=== PATIENT | female | born 1980 | race Two or more races ===

== ENCOUNTER 2016-09-08 11:29 | Emergency (ER) | payer SELFPAY ==
[2016-09-08 11:41] VITALS: BP 148/70
[2016-09-08] MEDS ORDERED: DIPHENHYDRAMINE HCL 25 MG/10 ML UDC PO ONE (12:01)
[2016-09-08] MEDS ORDERED: FAMOTIDINE 20 MG TABLET PO ONE (12:01)
--- NOTE | 2016-09-08 12:07 | ER Document Report ---
ED Skin Rash/Insect Bite/Abscs - General Chief Complaint: Insect Bite Stated Complaint: POSSIBLE ALLERGIC REACTION Time Seen by Provider: 09/08/16 11:43 Mode of Arrival: Ambulatory Information source: Patient Notes: 36-year-old female presents to ED for a wasp sting to her right ankle around 11 AM. She has a local reaction with erythema and edema. Systemic reactions noted. Lungs are clear respirations even and unlabored speaking in complete sentences. States she had a little bit of anxiety and numbness in her left arm earlier but that is all relieved. TRAVEL OUTSIDE OF THE [place] IN LAST 30 DAYS: No - HPI Patient complains to provider of: Insect sting Onset: This morning Onset/Duration: Gradual Quality of pain: Sharp Severity: Moderate Pain Level: 3 Skin Character: Other - Staying to the right ankle Quality of rash: Painful Identify cause: Yes Exacerbated by: Denies Relieved by: Other Similar symptoms previously: Yes Recently seen / treated by doctor: Yes - Related Data Allergies/Adverse Reactions: latex [Latex] Allergy (Mild, Verified 09/08/16 11:53) Hives aspirin [Aspirin] Allergy (Verified 09/08/16 11:53) cantelope Allergy (Unknown, Uncoded 09/08/16 11:53) Home Medications: Current Home Medications No Home Medications 09/08/16 [History] Past Medical History - General Information source: Patient - Social History Smoking Status: Never Smoker Cigarette use (# per day): No Chew tobacco use (# tins/day): No Smoking Education Provided: No Frequency of alcohol use: Social Drug Abuse: None 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 denies: Arthritis, CAD, COPD, CVA, Hypertension, Malignancy, Thyroid Disfunction Patient has suicidal ideation: No Patient has homicidal ideation: No - Past Medical History Cardiac Medical History: Reports: None Pulmonary Medical History: Reports: Hx Asthma EENT Medical History: Reports: None Neurological Medical History: Reports: None Endocrine Medical History: Reports: None Renal/ Medical History: Reports: Hx Ovarian Cysts Malignancy Medical History: Reports: None GI Medical History: Reports: None Musculoskeltal Medical History: Reports Hx Musculoskeletal Trauma Skin Medical History: Reports None Psychiatric Medical History: Reports: None Traumatic Medical History: Reports: None Infectious Medical History: Reports: None Past Surgical History: Reports: Hx Dilation and Curettage - After miscarriage, Hx Orthopedic Surgery - arthrascopic right knee - Immunizations Immunizations up to date: Yes Hx Diphtheria, Pertussis, Tetanus Vaccination: Yes - 04/28/2012 Hx Pneumococcal Vaccination: 04/28/12 Review of Systems - Review of Systems Constitutional: No symptoms reported EENT: No symptoms reported Cardiovascular: No symptoms reported Respiratory: No symptoms reported Gastrointestinal: No symptoms reported Genitourinary: No symptoms reported Female Genitourinary: No symptoms reported Musculoskeletal: No symptoms reported Skin: Other - Reaction to a bee sting mild erythema and swelling to the right ankle Hematologic/Lymphatic: No symptoms reported Neurological/Psychological: No symptoms reported Physical Exam - Vital signs Vitals: Temp Pulse Resp BP Pulse Ox 98.1 F 94 24 H 148/70 H 100 09/08/16 11:39 09/08/16 11:39 09/08/16 11:39 09/08/16 11:39 09/08/16 11:39 Interpretation: Normal - General General appearance: Appears well, Alert - HEENT Head: Normocephalic, Atraumatic Eyes: Normal Pupils: PERRL - Respiratory Respiratory status: No respiratory distress Chest status: Nontender Breath sounds: Normal Chest palpation: Normal - Cardiovascular Rhythm: Regular Heart sounds: Normal auscultation Murmur: No - Abdominal Inspection: Normal Distension: No distension Bowel sounds: Normal Tenderness: Nontender Organomegaly: No organomegaly - Back Back: Normal, Nontender - Extremities General upper extremity: Normal inspection, Nontender, Normal color, Normal ROM , Normal temperature General lower extremity: Normal inspection, Nontender, Normal color, Normal ROM , Normal temperature, Normal weight bearing. No: Michela's sign Ankle: Other - Erythema and swelling to the right ankle from a bee sting - Neurological Neuro grossly intact: Yes Cognition: Normal Orientation: AAOx4 Lola Coma Scale Eye Opening: Spontaneous [place] Coma Scale Verbal: Oriented [place] Coma Scale Motor: Obeys Commands Lola Coma Scale Total: 15 Speech: Normal Motor strength normal: LUE, RUE, LLE, RLE Sensory: Normal - Psychological Associated symptoms: Normal affect, Normal mood - Skin Skin Temperature: Warm Skin Moisture: Dry Skin Color: Normal Skin irregularity: Erythema Location of irregularity: Extremities - Ankle right Irregularity with: Swelling, Tenderness Course - Re-evaluation Re-evalutation: 09/08/16 12:09 Treated with Benadryl and Pepcid and ice. Patient instructed on use of Benadryl Pepcid and ice for the decrease in pain and swelling to the right ankle. - Vital Signs Vital signs: Temp Pulse Resp BP Pulse Ox 98.1 F 94 18 148/70 H 100 09/08/16 11:39 09/08/16 11:39 09/08/16 11:53 09/08/16 11:39 09/08/16 11:39 Discharge - Discharge Clinical Impression: Local reaction to a wasp sting Condition: Stable Disposition: HOME, SELF-CARE Instructions: Family Physicians / Practices Additional Instructions: Insect Sting You've been stung by an insect. The venom can cause pain, redness, and swelling. Right after the sting, we sometimes use adrenaline to reduce the reaction to the venom. This also stops any allergic reaction. You should apply cold compresses, rest and elevate the affected part, and take antihistamines. A more severe, itchy red swelling sometimes develops the next day. This is a local allergic reaction to the venom. This local allergy isn't dangerous. We treat it with cortisone-type medicine and antihistamines. Sometimes we use antibiotics if we're worried about infection. If you develop a fever, chills, a red streak, or swollen glands in the area of the bite, infection may be starting. Return at once. Insect stings from the bee and hornet family may cause a severe allergic reaction. Symptoms include hoarseness, shortness of breath, general redness of the skin, general itching, or lightheadedness. If any of these symptoms occur, you'll be treated with adrenalin and cortisone-like steroids. You should carry an "Anaphylaxis Kit" with you in the summer months so you can administer these medications to yourself before getting emergency medical care. ACID-SUPPRESSING MEDICATION: You have a prescription for medicine which reduces the stomach's secretion of acid. Examples include Zantac, Tagament, and Pepcid. These drugs are often used to allow healing of ulcers or esophagitis. They may be needed to prevent recurrence of ulcers in some patients, or to prevent damage from acid reflux in the esophagus. Take all medication as prescribed, even after the pain is gone. Regular antacids may be added as needed if you have symptoms while taking this medicine. These medications sometimes are prescribed for allergic reactions because they have anti-histaminic effects and relieve the rash and itching of the reaction. There are usually no side effects from this medication. But, in rare cases and particularly in the elderly, serious problems can occur. Contact your doctor if there is fever, rash, hallucinations, confusion, or unusual bruising. Contact your doctor at once if you develop lightheadedness, black or bloody stool, or bloody vomitus. USE OF DIPHENHYDRAMINE: The use of diphenhydramine (Benadryl) has been recommended to control allergic symptoms. The 25 mg strength is available over- the-counter, as well as the elixir. This antihistamine is used for many symptoms. It's useful for itching, watering eyes and nose, allergic swelling, hives, and insect stings. The medication can be repeated four times daily. Age Elixir (12.5 mg/tsp) 25 mg pill 2-3 yr 1/2 tsp 4-8 yr 1 tsp 9-14 yr 2 tsp one tab adult 1-2 tabs Antihistamines may cause drowsiness, especially with the first dose. Do not operate machinery or drive while under the effects of the medication. Do not combine the medication with alcohol, or with any other medication without talking to your doctor. Ice & Elevation Apply ice packs frequently against the painful area. Many different schedules are recommended, such as "20 minutes on, 20 minutes off" or "one hour ice, two hours rest." If you need to work, you may need to go longer between ice treatments. You should plan to have the area ice packed AT LEAST one- fourth of the time. The ice should be applied over the wrap, tape, or splint, or over a layer of cloth -- not directly against the skin. Some ice bags have a built-in cloth and can be put directly on the skin. Your injured part should be elevated as much as possible over the next 48 hours. Try to keep the injury above the level of the heart. Avoid use of the injured area. Elevation and rest will decrease the swelling. FOLLOW-UP CARE: If you have been referred to a physician for follow-up care, call the physician s office for an appointment as you were instructed or within the next two days. If you experience worsening or a significant change in your symptoms, notify the physician immediately or return to the Emergency Department at any time for re-evaluation. Forms: Elevated Blood Pressure, Return to Work
== END 2016-09-08 12:20 | disposition home or self-care (01) ==
LOC: ER 11:29
DX: T63.461A Toxic effect of venom of wasps, accidental (unintentional), initial encounter (principal); F41.9 Anxiety disorder, unspecified; R20.0 Anesthesia of skin
CPT/HCPCS: 99281; J3490

== ENCOUNTER 2017-01-13 20:36 | Emergency (ER) | payer SELFPAY ==
--- NOTE | 2017-01-13 21:35 | ER Document Report ---
ED General - General Chief Complaint: Skin Problem Stated Complaint: BODY PAIN Time Seen by Provider: 01/13/17 21:27 Notes: Patient is a 36-year-old female comes emergency department for chief complaint of abnormal and nontraumatic bruises showing up on her body including her legs, back, and buttocks. She has never had this before. She denies any other symptoms including pain, fever, or trauma. She states that she did have dental procedure performed 5 days ago and she is currently on hydrocodone and amoxicillin. She does not take any other daily medications. LMP within the past month. TRAVEL OUTSIDE OF THE [place] IN LAST 30 DAYS: No - Related Data Allergies/Adverse Reactions: latex [Latex] Allergy (Mild, Verified 09/08/16 11:53) Hives aspirin [Aspirin] Allergy (Verified 09/08/16 11:53) cantelope Allergy (Unknown, Uncoded 09/08/16 11:53) Past Medical History - General Information source: Patient - Social History Smoking Status: Never Smoker Frequency of alcohol use: None Drug Abuse: None Lives with: Family Family History: DM, Hyperlipidemia. denies: Arthritis, CAD, COPD, CVA, Hypertension, Malignancy, Thyroid Disfunction Pulmonary Medical History: Reports: Hx Asthma Renal/ Medical History: Reports: Hx Ovarian Cysts. Denies: Hx Peritoneal Dialysis Musculoskeltal Medical History: Reports Hx Musculoskeletal Trauma Past Surgical History: Reports: Hx Dilation and Curettage - After miscarriage, Hx Orthopedic Surgery - arthrascopic - Immunizations Immunizations up to date: Yes Hx Diphtheria, Pertussis, Tetanus Vaccination: Yes - 04/28/2012 Hx Pneumococcal Vaccination: 04/28/12 Review of Systems - Review of Systems Constitutional: No symptoms reported EENT: No symptoms reported Cardiovascular: No symptoms reported Respiratory: No symptoms reported Gastrointestinal: No symptoms reported Genitourinary: No symptoms reported Female Genitourinary: No symptoms reported Musculoskeletal: No symptoms reported Skin: See HPI Hematologic/Lymphatic: No symptoms reported Neurological/Psychological: No symptoms reported Physical Exam - Vital signs Vitals: Temp Pulse Resp BP Pulse Ox 98.5 F 98 16 141/95 H 98 01/13/17 20:51 01/13/17 20:51 01/13/17 20:51 01/13/17 20:51 01/13/17 20:51 Interpretation: Normal - General General appearance: Appears well, Alert - HEENT Head: Normocephalic, Atraumatic Eyes: Normal Pupils: PERRL - Respiratory Respiratory status: No respiratory distress Chest status: Nontender Breath sounds: Normal Chest palpation: Normal - Cardiovascular Rhythm: Regular Heart sounds: Normal auscultation Murmur: No - Abdominal Inspection: Normal Distension: No distension Bowel sounds: Normal Tenderness: Nontender Organomegaly: No organomegaly - Back Back: Normal, Nontender - Extremities General upper extremity: Normal inspection, Nontender, Normal color, Normal ROM , Normal temperature General lower extremity: Normal inspection, Nontender, Normal color, Normal ROM , Normal temperature, Normal weight bearing. No: Michela's sign - Neurological Neuro grossly intact: Yes Cognition: Normal Orientation: AAOx4 [place] Coma Scale Eye Opening: Spontaneous Lola Coma Scale Verbal: Oriented Lola Coma Scale Motor: Obeys Commands [place] Coma Scale Total: 15 Speech: Normal Motor strength normal: LUE, RUE, LLE, RLE Sensory: Normal - Psychological Associated symptoms: Normal affect, Normal mood - Skin Skin Temperature: Warm Skin Moisture: Dry Skin Color: Normal Skin irregularity: other - Small amount of ecchymosis noted over the lower back , side of the right leg. Increased amount of ecchymosis noted over the right medial thigh. No erythema, induration, tenderness, or other abnormality noted. Course - Re-evaluation Re-evalutation: Platelets unremarkable. Blood counts otherwise unremarkable. PT, PTT within normal limits. Patient has no active bleeding on examination. She does have some small scattered bruising. Exact source is unsure but workup and exam do not indicate ITP or other treatment requiring acute abnormality. Patient requesting primary care referral, she was provided with this for close follow-up , discussed return precautions, provided patient with copy of her paperwork, patient states satisfaction and agreement. - Vital Signs Vital signs: Temp Pulse Resp BP Pulse Ox 98.1 F 86 16 124/88 H 98 01/14/17 01:08 01/14/17 01:08 01/14/17 01:08 01/14/17 01:08 01/14/17 01:08 - Laboratory Result Diagrams: 01/13/17 21:58 Laboratory results interpreted by me: 01/13/17 21:58 Hct 35.6 L Seg Neutrophils % 38.8 L Lymphocytes % 48.2 H Discharge - Discharge Clinical Impression: Ecchymosis Condition: Stable Disposition: HOME, SELF-CARE Additional Instructions: Your laboratory workup does not indicate any concerning abnormality. Please follow-up with primary care provider for additional evaluation. See referral. Avoid blood thinning medications for now including aspirin, ibuprofen, etc. Take Tylenol if needed for pain. Return to emergency department for any concerning or worsening symptoms including bleeding symptoms (such as bleeding from the gums or other locations abnormally). Referrals: STACY GAUTAM MD [ACTIVE STAFF] - Follow up as needed CRISTIAN CHENG MD [ACTIVE STAFF] - Follow up as needed
[2017-01-13 22:27] LABS: ABSOLUTE EOSINOPHILS # (AUTO) 0.1 10^3/uL (0.0-0.6); ABSOLUTE LYMPHOCYTES (AUTO) 3.9 10^3/uL (0.5-4.7); ABSOLUTE MONOCYTES (AUTO) 0.9 10^3/uL (0.1-1.4); ABSOLUTE NEUT (AUTO) 3.1 10^3/uL (1.7-8.2); BASOPHILS % (AUTO) 0.4 % (0-2); EOSINOPHILS % (AUTO) 1.8 % (0-6); HEMATOCRIT 35.6 % (36.0-47.0); HEMOGLOBIN 12.5 g/dL (12.0-15.5); HGB HCT DIFFERENCE 1.9; LYMPHOCYTES % (AUTO) 48.2 % (13-45); MEAN CORPUSCULAR HEMOGLOBIN 31.6 pg (27.0-33.4); MEAN CORPUSCULAR HGB CONC 35.2 g/dL (32.0-36.0); MEAN CORPUSCULAR VOLUME 90 fl (80-97); MONOCYTES % (AUTO) 10.8 % (3-13); RED BLOOD COUNT 3.96 10^6/uL (3.72-5.28); RED CELL DISTRIBUTION WIDTH 11.9 % (11.5-14.0); SEGMENTED NEUTROPHILS % (AUTO) 38.8 % (42-78)
[2017-01-13 23:49] LABS: PROTHROMBIN TIME 12.4 SEC (11.4-15.4)
[2017-01-14 01:11] VITALS: BP 124/88
== END 2017-01-14 01:11 | disposition home or self-care (01) ==
LOC: ER 20:36
DX: S80.12XS Contusion of left lower leg, sequela (principal); S80.11XS Contusion of right lower leg, sequela; S30.0XXS Contusion of lower back and pelvis, sequela; L98.9 Disorder of the skin and subcutaneous tissue, unspecified; M79.1 Myalgia; Z98.890 Other specified postprocedural states; X58.XXXS Exposure to other specified factors, sequela
CPT/HCPCS: 36415; 84703; 85025; 85610; 85730; 99283

== ENCOUNTER 2017-06-23 17:36 | Emergency (ER) | payer SELFPAY ==
[2017-06-23 17:48] VITALS: BP 123/84
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
== END 2017-06-23 20:35 | disposition home or self-care (01) ==
LOC: ER 17:36
DX: S39.92XA Unspecified injury of lower back, initial encounter (principal); V28.5XXA Motorcycle passenger injured in noncollision transport accident in traffic accident, initial encounter
CPT/HCPCS: 72220; 99283

== ENCOUNTER 2017-10-05 07:06 | Day surgery (SDC) | payer MEDICAID ==
[2017-09-29 11:18] LABS: HEMATOCRIT 40.3 % (36.0-47.0); HEMOGLOBIN 13.9 g/dL (12.0-15.5); MEAN CORPUSCULAR HEMOGLOBIN 31.1 pg (27.0-33.4); MEAN CORPUSCULAR HGB CONC 34.5 g/dL (32.0-36.0); MEAN CORPUSCULAR VOLUME 90 fl (80-97); PLATELET COUNT 312 10^3/uL (150-450); RED BLOOD COUNT 4.48 10^6/uL (3.72-5.28); RED CELL DISTRIBUTION WIDTH 12.4 % (11.5-14.0)
[2017-09-29 11:21] LABS: APPEARANCE,URINE SLIGHTLY-CLOUDY; BILIRUBIN,URINE NEGATIVE (NEGATIVE); COLOR,URINE YELLOW; GLUCOSE, URINE NEGATIVE (NEGATIVE); KETONES,URINE NEGATIVE (NEGATIVE); LEUKOCYTE ESTERASE,URINE TRACE (NEGATIVE); NITRITE,URINE NEGATIVE (NEGATIVE); PROTEIN,URINE NEGATIVE (NEGATIVE); URINE SPECIFIC GRAVITY 1.011; UROBILINOGEN,URINE NEGATIVE mg/dL (<2.0)
[~2017-10-05 07:06] MED LIST: LACTATED RINGERS 1000 ML IV PRN; LIDOCAINE 0.5% INJ-PF (5 MG/ML) 50 ML SDV SUBCUT PRN
[2017-10-05] MEDS ORDERED: DEXAMETHASONE SOD PHOSPHATE INJ 4 MG/1 ML VIAL ONE (08:19)
[2017-10-05] MEDS ORDERED: MIDAZOLAM 2 MG/2 ML INJ ONE (08:19)
[2017-10-05] MEDS ORDERED: ONDANSETRON HCL INJ/PF 4 MG/2 ML SDV ONE (08:20)
[2017-10-05] MEDS ORDERED: PROPOFOL INJ 200 MG/20 ML VIAL IV ONE (08:20)
[2017-10-05] MEDS ORDERED: HYDROMORPHONE HCL INJ/PF 2 MG/ML AMPULE ONE (08:20)
[2017-10-05] MEDS ORDERED: PROMETHAZINE HCL INJ 25 MG/1 ML VIAL IV PRN (08:54)
[2017-10-05] MEDS ORDERED: DIPHENHYDRAMINE HCL 50 MG/ML VIAL IV PRN (08:54)
[2017-10-05] MEDS ORDERED: FENTANYL CITRATE INJ/PF 100 MCG/2 ML AMPUL IV PRN ×3 (08:54)
[2017-10-05] MEDS ORDERED: MEPERIDINE HCL/PF INJ 25 MG/1 ML DISP.SYRIN IV PRN (08:54)
[2017-10-05] MEDS ORDERED: MORPHINE SULFATE 10 MG/ML INJ IV PRN (08:54)
[2017-10-05] MEDS ORDERED: IBUPROFEN 800 MG TABLET PO PRN (09:26)
[2017-10-05] MEDS ORDERED: MORPHINE SULFATE 10 MG/ML INJ IM PRN (09:26)
[2017-10-05] MEDS ORDERED: OXYCODONE-ACETAMINOPHEN 5-325 MG TABLET PO PRN ×2 (09:27)
[2017-10-05] MEDS ORDERED: FENTANYL CITRATE INJ/PF 100 MCG/2 ML AMPUL ONE (09:31)
--- NOTE | 2017-10-05 09:35 | OPERATIVE REPORT E ---
Operative Report NAME: SHEREE DUKE : 1980 AGE: 37Y DATE OF SURGERY: 10/05/2017 ROOM: PREOPERATIVE DIAGNOSIS: Undesired fertility. POSTOPERATIVE DIAGNOSIS: Undesired fertility. OPERATION: Laparoscopic tubal cauterization. SURGEON: CARO WHITE M.D. HYDROELECTRIC PLANT TECHNICIAN: Francesca Chu, management assistant certified ophthalmic surgical assistant ANESTHESIA: Dr. Pope with general. FINDINGS: Normal uterus, tubes, and ovaries. COMPLICATIONS: None. ESTIMATED BLOOD LOSS: 10 mL. SPECIMENS REMOVED: None. PROCEDURE IN DETAIL: The patient was taken to the operating room, prepared, and draped in a normal sterile fashion in a dorsal lithotomy position. Under sterile conditions an in-and-out cath was performed of approximately 150 mL of clear urine. A sterile speculum was placed in the vagina and the cervix was prepped with Betadine and grasped on the anterior lip with a single-tooth tenaculum. A Hulka clamp was then placed through the cervix without difficulty. The tenaculum and the speculum were removed. Gloves were changed and attention was turned to the upper portion of the case where an umbilical skin incision was made. Under direct visualization a 5 mm port was placed through this incision due to failure to confirm peritoneal placement with the Veress needle. Once peritoneal placement was confirmed with the Optiview, the abdomen was inflated with approximately 2 L of CO2 gas to a pressure of 15 mmHg. The patient was placed in steep Trendelenburg. Under direct visualization another 5 mm port was placed in the left lower quadrant and the bowel was swept away with a blunt probe. The Kleppinger was then introduced through this incision and beginning with the left fallopian tube it presented itself more readily. The left fallopian tube was cauterized approximately 3.5 cm using the Kleppinger. This was repeated on the right fallopian tube without difficulty. The instruments were then removed under direct visualization and the lower trocar was also removed. The camera was taken out and the abdomen was deflated through the umbilical port and the trocar there was removed at that point. The skin was closed at both sites using 4-0 Vicryl. The patient tolerated the procedure well. Sponge, lap, and needle counts were correct x2. The Hulka clamp was removed at the end of the procedure, and the patient was taken to recovery in stable condition. DICTATING PHYSICIAN: CARO WHITE M.D. [id number] PHY#: [id number] ID: [id number] JOB#: [id number] ACCT: [id number] cc:CARO WHITE M.D. >
[2017-10-05 10:59] VITALS: BP 127/88
[2017-10-05] MEDS ORDERED: ROCURONIUM BROMIDE INJ 50 MG/5 ML VIAL IV ONE (15:18)
[2017-10-05] MEDS ORDERED: SUCCINYLCHOLINE CHLORIDE INJ 200 MG/10 ML VIAL ONE (15:18)
== END 2017-10-05 10:55 | disposition home or self-care (01) ==
LOC: OROUT 07:06
PROVIDERS: ATTEND Obstetrics & Gynecology
DX: Z30.2 Encounter for sterilization (principal); J45.909 Unspecified asthma, uncomplicated; I10 Essential (primary) hypertension; Z86.718 Personal history of other venous thrombosis and embolism; Z79.51 Long term (current) use of inhaled steroids; Z91.040 Latex allergy status; Z88.6 Allergy status to analgesic agent
CPT/HCPCS: 36415; 85027; 81005; 81025; 58670; J2250; J3490; J1100; J3010; J1170; J0330; J2405; J2704; 851

== ENCOUNTER 2018-06-04 17:35 | Emergency (ER) | payer MEDICAID, OTHER ==
[2018-06-04 18:54] VITALS: BP 138/92
[2018-06-04] MEDS ORDERED: DIPH/PERTUSS(ACELL)/TETANUS VAC/PF 0.5 ML SYR (>=10YO) IM ONE (18:59)
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
== END 2018-06-04 19:35 | disposition home or self-care (01) ==
LOC: ER 17:35
DX: S50.12XA Contusion of left forearm, initial encounter (principal); S60.212A Contusion of left wrist, initial encounter; W50.0XXA Accidental hit or strike by another person, initial encounter; M79.632 Pain in left forearm; M79.642 Pain in left hand; Z91.040 Latex allergy status; J45.909 Unspecified asthma, uncomplicated; Z88.6 Allergy status to analgesic agent; Z91.018 Allergy to other foods; Z23 Encounter for immunization
CPT/HCPCS: 90715; 99283

== ENCOUNTER 2019-03-11 20:54 | Emergency (ER) | payer OTHER ==
[2019-03-11] MEDS ORDERED: ACETAMINOPHEN 325 MG TABLET PO ONE (22:11)
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
[2019-03-12] MEDS ORDERED: DEXAMETHASONE SOD PHOS INJ 10 MG/1 ML VIAL IM ONE (01:05)
[2019-03-12] MEDS ORDERED: IBUPROFEN 600 MG TABLET PO ONE (01:05)
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
[2019-03-12 01:25] VITALS: BP 123/67
== END 2019-03-12 01:37 | disposition home or self-care (01) ==
LOC: ER 20:54
DX: M54.5 Low back pain (principal); M54.9 Dorsalgia, unspecified; V87.7XXA Person injured in collision between other specified motor vehicles (traffic), initial encounter; Z87.891 Personal history of nicotine dependence; J45.909 Unspecified asthma, uncomplicated
CPT/HCPCS: 99283; 96372; 72110; J1100